=== PATIENT | male | born 1945 | race Caucasian/White ===

== ENCOUNTER 2020-05-14 06:58 | Outpatient (CLI) | payer MEDICARE, SELFPAY ==
[2020-05-14 07:16] LABS: Basophils Absolute Auto 0.05 K/mm3 (0.00-0.10); Basophils Percent Auto 0.8 % (0.0-1.0); Eosinophils Absolute Auto 0.18 K/mm3 (0.02-0.50); Eosinophils Percent Auto 2.7 % (1.0-6.0); Hematocrit 49.1 % (37.0-46.0); Hemoglobin 16.5 g/dL (12.4-15.3); Immature Granulocyte Absolute 0.04 K/mm3 (0.00-0.00); Immature Granulocyte Percent A 0.6 % (0.0-0.0); Lymphocytes Absolute Auto 1.61 K/mm3 (1.10-4.50); Lymphocytes Percent Auto 24.3 % (18.0-42.0); Mean Corpuscular HGB Conc 33.6 g/dL (32.0-36.0); Mean Corpuscular Hemoglobin 30.7 pg (27.0-31.0); Mean Corpuscular Volume 91.4 fL (78.0-102.0); Monocytes Absolute Auto 0.76 K/mm3 (0.10-0.90); Monocytes Percent Auto 11.5 % (2.0-11.0); Neutrophils Percent Auto 60.1 % (50.0-70.0); Platelet Count Result 164 K/mm3 (150-420); Red Blood Count 5.37 M/mm3 (4.70-6.10); Red Cell Distribution Width 12.9 % (11.6-14.4); White Blood Count 6.6 K/mm3 (4.8-10.8)
[2020-05-14 07:42] LABS: Alanine Aminotransferase 36 U/L (16-63); Albumin Level 4.2 g/dL (3.4-5.0); Alkaline Phosphatase 93 U/L (46-116); Anion Gap 4 mmol/L (8-16); Aspartate Amino Transferase 20 U/L (15-37); Bilirubin,Total 1.5 mg/dL (0.00-1.00); Blood Urea Nitrogen 19 mg/dL (7-18); Calcium 9.1 mg/dL (8.5-10.1); Carbon Dioxide 31 mmol/L (21-32); Chloride 104 mmol/L (98-108); Cholesterol 171 mg/dL (0-200); Estimated Glomerular Filt Rate > 60; Glucose 123 mg/dL (70-99); HDL Direct 63 mg/dL (40-60); LDL Cholesterol Calculated 83 mg/dL (<130); Osmolality Calculated 291 mOsm/kg (285-295); Potassium 4.5 mmol/L (3.5-5.1); Sodium 139 mmol/L (136-145); Total Protein 7.3 g/dL (6.4-8.2); Triglycerides 124 mg/dL (0-150)
[2020-05-14 09:53] LABS: Hemoglobin A1C 5.5 % (<5.7)
== END 2020-05-14 06:59 | disposition home or self-care (01) ==
LOC: CHSLAB 07:01
PROVIDERS: PCP Nurse Practitioner Family; Visit Provider Nurse Practitioner Family
DX: E78.5 Hyperlipidemia, unspecified (principal); I10 Essential (primary) hypertension; I25.10 Atherosclerotic heart disease of native coronary artery without angina pectoris; E11.9 Type 2 diabetes mellitus without complications
CPT/HCPCS: 36415; 80053; 80061; 83036; 85025

== ENCOUNTER 2020-07-09 15:13 | Outpatient (CLI) | payer MEDICARE, SELFPAY ==
--- NOTE | 2020-07-09 15:30 | ECG_ITS ---
Measurements Intervals [place] Rate: 63 P: 51 GA: 186 QRS: -7 QRSD: 102 T: 30 QT: 399 QTc: 409 Interpretive Statements SINUS RHYTHM BASELINE ARTIFACT- I, III, AVR, AVL, AVF NORMAL ECG Electronically Signed On 07-09-2020 15:29:34 [employer] SPECIALIST by Saulo Bran D.O.
== END 2020-07-09 15:14 | disposition home or self-care (01) ==
LOC: ANHSURGERY 15:18
PROVIDERS: PCP Nurse Practitioner Family; Visit Provider Urology
DX: C67.9 Malignant neoplasm of bladder, unspecified (principal); I10 Essential (primary) hypertension; Z01.818 Encounter for other preprocedural examination
CPT/HCPCS: 87086; 93005

== ENCOUNTER → 2020-07-13 01:30 | Outpatient (CLI) | payer MEDICARE, SELFPAY ==
[2020-07-13 19:42] LABS: SARS-CoV-2 RNA PCR Negative
== END ==
PROVIDERS: PCP Nurse Practitioner Family; Visit Provider Urology
DX: Z01.812 Encounter for preprocedural laboratory examination (principal); Z20.822 Contact with and (suspected) exposure to COVID-19
CPT/HCPCS: C9803; U0003; U0005

== ENCOUNTER 2020-07-16 01:56 | Day surgery (SDC) | payer MEDICARE, SELFPAY ==
[2020-07-08 10:45] VITALS: BMI 27.0
[2020-07-16 06:11] VITALS: BP 181/82; PULSE 62; RESP 20; TEMP 36.5; O2SAT 100
--- NOTE | 2020-07-16 06:43 | WPDANESEPPF ---
Anes - Initial Pre Proc Eval Procedure: Operation Date: 07/16/20 07:30 Proposed Procedures p Cystoscopy Bladder Biopsy With Fulguration - Chava Thornton MD Date/Time: 07/16/20 06:43 Surgeon: Chava Thornton MD Pre Op Diagnosis: Bladder Lesion Patient Data Age: 74 Gender: M Height: 1.8 m Weight: 88 kg Allergies Allergy/AdvReac Type Severity Reaction Status Date / Time No Known Allergies Allergy Unverified 07/08/20 10:36 Home Medications Medication Instructions Recorded Confirmed Type aspirin [Adult Low Dose Aspirin] 81 mg PO HS 05/01/19 07/08/20 History atorvastatin 40 mg PO HS 05/01/19 07/08/20 History carvedilol 3.125 mg PO BID 05/01/19 07/08/20 History coQ10 (ubiquinol) 100 mg PO DAILY 05/01/19 07/08/20 History cinnamon bark [Cinnamon] 1,200 mg PO DAILY 07/08/20 07/08/20 History lisinopril 10 mg PO QAM 07/08/20 07/08/20 History omega 9-[id number]-[id number]-fish oil [Fish Oil] 1 cap PO DAILY 07/08/20 07/08/20 History Patient hx anesthesia problems: none Family hx anesthesia problems: none PMFSH Past Medical History Medical History (Updated 07/16/20 @ 06:47 by Lamonte Nazario MD) Aortic stenosis 1.3 cm2 Bladder cancer In Remission - Under Surveilane by Dr Thornton CAD (coronary artery disease) Hyperlipidemia Hypertension Pancreatitis Venous insufficiency Surgical History Surgical History 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 Transurethral Resection of Bladder Mass H/O cystoscopy Family History Family History Mother Patient's mother is Acute myocardial infarction Father Patient's father is Family history of cardiovascular disease Social History Social History Smoking status: Never smoker Alcohol intake: current Drinks per week: 8 Alcohol use details: WINE Substance use: never Living arrangements: with family Additional living arrangements comments: SIGNIFANT OTHER Gender identity (if verbalized by the patient): Male Spiritual care concerns: No Anes - Eval Final PreProcedure Day of Procedure 07/16/20 06:43 Patient weight: overweight Heart: regular rate and rhythm Lungs: clear to auscultation and normal air movement Airway: Mallampati scale class II Neurological: alert and oriented Last oral intake: >/= 8 hours ASA classification: IV Emergent: no Anesthetic plan: proceed Anesthesia type and monitoring: general LMA Informed Consent: The patient's anesthetic plan and its attendant risks and benefits were discussed with the patient/family/POA. Questions were solicited and answers provided to the satisfaction of the patient/family/POA.
[2020-07-16] MEDS: LACTATED RINGERS 1,000 ML 30 ML IV CONT (06:47)
--- NOTE | 2020-07-16 07:32 | WPDHPUPDATE1 ---
History and Physical Update Update Date/Time: 07/16/20 07:32 History and Physical has been reviewed, including an updated exam of the patient. There are NO changes in the patient's condition. Risks, benefits, and alternatives have been discussed and questions answered. Patient agrees to proceed with procedure. Proceed with cysto with bladder biopsy and fulguration
[2020-07-16] MEDS: ceFAZolin 2 GM/D5W 50 ML 2 GM/50 ML BAG IVPB (07:38)
[2020-07-16] MEDS: LIDOCAINE HCL 2% GEL UROJET 10 ML PKG MUCOUS MEM (07:53)
--- NOTE | 2020-07-16 08:04 | PM.PROC ---
Procedure Note - Detailed Date of procedure: 07/16/20 Pre-op diagnosis: Bladder Lesion Post-op diagnosis: same Procedure performed: Cystoscopy, bladder biopsy, fulguration Description of procedure: Patient is taken the operative suite and correctly identified. Once anesthesia was obtained was placed in dorsal lithotomy position and prepped and draped in usual sterile fashion. Twenty-two Vincentian scope was inserted in the bladder. There is some mild erythema along the posterior wall prior resection site. Using a cold cup biopsy we biopsied this area. We fulgurated the base and the surrounding tissue. There was good hemostasis. 2% viscous lidocaine was inserted into the urethra and patient is taken recovery room stable condition. Will call for path results in 1 week's time. Anesthesia: GLMA Surgeon: Chava Thornton MD Drains: No Packing: No Pathology: yes Complications: No immediate complications Condition: stable Disposition: PACU
[2020-07-16 08:07] VITALS: BP 126/75; PULSE 61; RESP 18; TEMP 36.1; O2SAT 100
[2020-07-16 08:20] VITALS: BP 135/75; PULSE 55; RESP 18; O2SAT 100
[2020-07-16 08:35] VITALS: BP 148/79; PULSE 55; RESP 18; O2SAT 100
[2020-07-16 08:40] VITALS: BP 156/83; PULSE 58; RESP 16
== END 2020-07-16 09:15 | disposition home or self-care (01) ==
PROVIDERS: PCP Nurse Practitioner Family; Visit Provider Urology
PROC: 0TBB8ZX Excision of Bladder, Via Natural or Artificial Opening Endoscopic, Diagnostic (ICD-10-PCS; CPT 52204; principal; 2020-07-16 07:30)
DX: N30.20 Other chronic cystitis without hematuria (principal); I10 Essential (primary) hypertension; I25.10 Atherosclerotic heart disease of native coronary artery without angina pectoris; E78.5 Hyperlipidemia, unspecified; I35.0 Nonrheumatic aortic (valve) stenosis; I87.2 Venous insufficiency (chronic) (peripheral); Z79.82 Long term (current) use of aspirin; Z85.51 Personal history of malignant neoplasm of bladder
CPT/HCPCS: 52204; 88305; A9270; J0690; J1100; J2370; J2405; J2704; J3010; J7120

== ENCOUNTER 2021-06-02 07:03 | Outpatient (CLI) | payer MEDICARE, SELFPAY ==
[2021-06-02 07:56] LABS: Anion Gap 8 mmol/L (8-16); Blood Urea Nitrogen 16 mg/dL (7-18); Calcium 9.1 mg/dL (8.5-10.1); Carbon Dioxide 31 mmol/L (21-32); Chloride 103 mmol/L (98-108); Estimated Glomerular Filt Rate > 60; Glucose 121 mg/dL (70-99); Osmolality Calculated 296 mOsm/kg (285-295); Potassium 4.5 mmol/L (3.5-5.1); Sodium 142 mmol/L (136-145)
== END 2021-06-02 07:04 | disposition home or self-care (01) ==
LOC: CHSLAB 07:09
PROVIDERS: PCP Nurse Practitioner Family
DX: I10 Essential (primary) hypertension (principal)
CPT/HCPCS: 36415; 80048

== ENCOUNTER 2021-06-21 21:02 | Emergency (ER) | payer MEDICARE, SELFPAY ==
[2021-06-21 21:25] VITALS: BP 197/95; PULSE 76; RESP 17; TEMP 36.8; O2SAT 98
--- NOTE | 2021-06-21 21:53 | ECG_ITS ---
Measurements Intervals [place] Rate: 70 P: 40 ME: 191 QRS: -12 QRSD: 104 T: 28 QT: 385 QTc: 415 Interpretive Statements SINUS RHYTHM BASELINE ARTIFACT- II, III, AVL, AVF, V3 NORMAL ECG Electronically Signed On 06-22-2021 7:40:18 GLYCERIN OPERATOR by Saulo Bran D.O.
--- NOTE | 2021-06-21 21:53 | ED.GENADULT ---
HPI - General Adult General Chief complaint: Unspecified Stated complaint: high blood pressure Time Seen by Provider: 06/21/21 21:53 Source: patient Mode of arrival: ambulatory Limitations: no limitations History of Present Illness HPI narrative: patient presents with elevated blood pressure initially systolic 190s currently his systolic blood pressure is 187 patient has a history of hypertension hyperlipidemia and aortic stenosis, otherwise the patient denies any chest pain no shortness of breath no abdominal pain no fever chills no headaches no nausea vomiting. The patient is comfortable but is concerned about his blood pressure. Patient is being seen by Cardiology and had recently had his lisinopril increased, patient did not take his Coreg prior to arrival, he says that he usually takes it prior to bed. Onset (ago): hour(s) Severity: mild Related Data Home Medications Medication Instructions Recorded Confirmed aspirin [Adult Low Dose Aspirin] 81 mg PO HS 05/01/19 06/21/21 atorvastatin 40 mg PO HS 05/01/19 06/21/21 carvedilol 3.125 mg PO BID 05/01/19 06/21/21 coQ10 (ubiquinol) 100 mg PO DAILY 05/01/19 06/21/21 cinnamon bark [Cinnamon] 1,200 mg PO DAILY 07/08/20 06/21/21 omega 7-[id number]-[id number]-fish oil [Fish Oil] 1 cap PO DAILY 07/08/20 06/21/21 lisinopril 40 mg PO DAILY 06/21/21 06/21/21 Allergies Allergy/AdvReac Type Severity Reaction Status Date / Time No Known Allergies Allergy Verified 06/21/21 21:51 Review of Systems Review of Systems: All systems reviewed & are unremarkable except as noted in HPI and below PMFSH Past Medical History Medical History Aortic stenosis 1.3 cm2 Bladder cancer In Remission - Under Surveilane by Dr Norberto LOBATO (coronary artery disease) Hyperlipidemia Hypertension Pancreatitis Venous insufficiency Surgical History Surgical History 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 Transurethral Resection of Bladder Mass H/O cystoscopy Family History Family History Mother Patient's mother is Acute myocardial infarction Father Patient's father is Family history of cardiovascular disease Social History Social History Smoking status: Never smoker Alcohol intake: current Drinks per week: 8 Alcohol use details: WINE Substance use: never Additional living arrangements comments: SIGNIFANT OTHER Gender identity (if verbalized by the patient): Male Spiritual care concerns: No Exam Const: General: cooperative, healthy appearing, comfortable, no acute distress and well developed HENMT: Head: normal to inspection Ears: hearing grossly normal bilaterally General nose exam: Normal external nose present Face and sinus: normal facial exam Mouth: Yes Normal oral and palatal mucosa present Eyes: General: appearance normal, both eyes and all related structures Neck: Neck: normal visual inspection, full ROM, no lymphadenopathy and no meningeal signs Chest: Chest palpation & inspection: normal inspection of the chest and normal palpation of entire chest wall Resp: Effort & Inspection: normal respiratory effort and able to speak in complete sentences Auscultation: clear to auscultation bilaterally Cardio: Palpation: normal PMI Rate: regular rate Heart sounds: Murmur heart sound present GI: Inspection: normal to inspection Back/Spine/Pelvis: Back: no CVA tenderness Skin: General skin exam: normal color and no rashes or lesions noted Neuro: General: oriented to person, oriented to place, oriented to time, patient oriented x3 and gait normal Extrem: General: normal to inspection, full ROM, capillary refill normal and normal exam except as noted Psych: Appearance: grossly normal and well kempt Course Course Em
[2021-06-21 22:19] VITALS: PULSE 74
[2021-06-21] MEDS: METOPROLOL TARTRATE INJ 5 MG/5 ML VIAL 2.5 MG IV PUSH (22:19)
[2021-06-21 22:55] VITALS: BP 166/77; PULSE 66
[2021-06-21 23:29] VITALS: BP 183/88; PULSE 66; RESP 16; TEMP 37.1; O2SAT 98
== END 2021-06-21 23:31 | disposition home or self-care (01) ==
PROVIDERS: Emergency Provider Emergency Medicine; PCP Nurse Practitioner Family
DX: I10 Essential (primary) hypertension (principal); I25.10 Atherosclerotic heart disease of native coronary artery without angina pectoris; E78.5 Hyperlipidemia, unspecified
CPT/HCPCS: 93005; 96374; 99284

== ENCOUNTER 2023-01-07 08:34 | Outpatient (CLI) | payer MEDICARE, OTHER, SELFPAY ==
[2023-01-07 09:38] LABS: Influenza A QL RT-PCR Negative (Negative); Influenza B QL RT-PCR Negative (Negative); SARS-CoV-2 RNA PCR Positive (Negative)
[2023-01-07 09:39] LABS: RSV RNA, RT-PCR Negative (Negative)
== END 2023-01-07 08:35 | disposition home or self-care (01) ==
PROVIDERS: PCP Family Medicine; Visit Provider Family Medicine
DX: U07.1 COVID-19 (principal); J06.9 Acute upper respiratory infection, unspecified
CPT/HCPCS: 87637

== ENCOUNTER 2023-01-21 06:58 | Outpatient (CLI) | payer MEDICARE, SELFPAY ==
[2023-01-21 07:08] LABS: Basophils Absolute Auto 0.04 K/mm3 (0.00-0.10); Basophils Percent Auto 0.6 % (0.0-1.0); Eosinophils Absolute Auto 0.18 K/mm3 (0.02-0.50); Eosinophils Percent Auto 2.7 % (1.0-6.0); Hemoglobin 14.9 g/dL (12.4-15.3); Immature Granulocyte Absolute 0.03 K/mm3 (0.00-0.00); Immature Granulocyte Percent A 0.4 % (0.0-0.0); Lymphocytes Absolute Auto 1.34 K/mm3 (1.10-4.50); Lymphocytes Percent Auto 19.8 % (18.0-42.0); Mean Corpuscular HGB Conc 35.5 g/dL (32.0-36.0); Mean Corpuscular Hemoglobin 32.9 pg (27.0-31.0); Mean Corpuscular Volume 92.7 fL (78.0-102.0); Mean Platelet Volume 8.6 fl (8.7-11.0); Monocytes Absolute Auto 0.71 K/mm3 (0.10-0.90); Monocytes Percent Auto 10.5 % (2.0-11.0); Neutrophils Absolute Auto 4.5 K/mm3 (1.7-7.2); Platelet Count Result 165 K/mm3 (150-420); Red Blood Count 4.53 M/mm3 (4.70-6.10); Red Cell Distribution Width 12.5 % (11.6-14.4); White Blood Count 6.8 K/mm3 (4.8-10.8)
[2023-01-21 08:05] LABS: Alanine Aminotransferase 94 U/L (16-63); Albumin Level 3.7 g/dL (3.4-5.0); Alkaline Phosphatase 106 U/L (46-116); Anion Gap 7 mmol/L (8-16); Aspartate Amino Transferase 62 U/L (15-37); Bilirubin,Total 1.4 mg/dL (0.00-1.00); Blood Urea Nitrogen 22 mg/dL (7-18); Carbon Dioxide 32 mmol/L (21-32); Chloride 101 mmol/L (98-108); Cholesterol 156 mg/dL (0-200); Estimated Glomerular Filt Rate > 60; Glucose 130 mg/dL (70-99); HDL Direct 50 mg/dL (40-60); LDL Cholesterol Calculated 72 mg/dL (<130); Osmolality Calculated 295 mOsm/kg (285-295); Potassium 4.2 mmol/L (3.5-5.1); Sodium 140 mmol/L (136-145); Total Protein 6.6 g/dL (6.4-8.2); Triglycerides 172 mg/dL (0-150)
[2023-01-21 08:07] LABS: Thyroid Stimulating Hormone Reflex 2.47 u/IU/mL (0.36-3.74)
[2023-01-25 18:53] LABS: Hepatitis A Antibody IgM Nonreactive; Hepatitis B Core Antibody Nonreactive (Nonreactive); Hepatitis B Surface Antigen Nonreactive (Nonreactive); Hepatitis C Virus Antibody Nonreactive
== END 2023-01-21 06:59 | disposition home or self-care (01) ==
LOC: CHSLAB 07:00
PROVIDERS: PCP Family Medicine; Visit Provider Family Medicine
DX: R74.01 Elevation of levels of liver transaminase levels (principal); I10 Essential (primary) hypertension; E11.9 Type 2 diabetes mellitus without complications
CPT/HCPCS: 36415; 80053; 80061; 80074; 84443; 85025

== ENCOUNTER 2023-01-28 07:37 | Outpatient (CLI) | payer MEDICARE, OTHER, SELFPAY ==
--- NOTE | ~2023-01-28 | XR_ITS ---
XR shoulder RT min 2V 01/28/2023 08:12 Indication: Right shoulder pain Procedure: 3 views right shoulder Comparison: No prior studies for comparison. Findings: There is moderate polyarticular osteoarthritis of the right acromioclavicular and glenohume ral joints. There is anatomic alignment. No fracture or traumatic malalignment. Surrounding osseous s tructures are unremarkable. No focal soft tissue abnormality. No foreign bodies. Impression: 1: Moderate polyarticular osteoarthritis. Reviewed, dictated and finalized at location L. Impression: 1: Moderate polyarticular osteoarthritis.
--- NOTE | ~2023-01-28 | US_ITS ---
US abdomen limited INDICATION: Elevated liver enzymes PROCEDURE: Realtime right upper abdominal ultrasound. COMPARISON: No prior studies for comparison. FINDINGS: The pancreas is normal without focal mass or pancreatic ductal dilation. Liver echotexture is normal without focal mass or intrahepatic biliary dilatation. There is normal directional flow i n the portal vein. The gallbladder is normal without stones, gallbladder wall thickening or pericholecystic fluid. Comm on bile duct measures 4 mm. No sonographic Colindres's sign. IMPRESSION: 1: Normal limited abdominal ultrasound. Reviewed, dictated and finalized at location L.
--- NOTE | ~2023-01-28 | XR_ITS ---
XR shoulder LT min 2V 01/28/2023 08:12 Indication: Left shoulder pain for 2 months Procedure: 3 views left shoulder Comparison: No prior studies for comparison. Findings: There is moderate polyarticular osteoarthritis of the left acromioclavicular and glenohumer al joints. There is chondrocalcinosis. There is anatomic alignment. No fracture or traumatic malalign ment. Surrounding osseous structures are unremarkable. No focal soft tissue abnormality. No foreign b odies. Impression: 1: Moderate polyarticular osteoarthritis. Reviewed, dictated and finalized at location L. Impression: 1: Moderate polyarticular osteoarthritis.
== END 2023-01-28 07:38 | disposition home or self-care (01) ==
PROVIDERS: PCP Family Medicine; Visit Provider Family Medicine
DX: M19.012 Primary osteoarthritis, left shoulder (principal); M19.011 Primary osteoarthritis, right shoulder; M25.511 Pain in right shoulder; M25.512 Pain in left shoulder; R74.01 Elevation of levels of liver transaminase levels
CPT/HCPCS: 73030; 76705

== ENCOUNTER 2023-03-29 07:41 | Outpatient (RCR) | payer MEDICARE, OTHER, SELFPAY ==
--- NOTE | 2023-03-29 08:29 | PTOPEVAL1 ---
Assessment and note entered by Darrell Benito Evaluation Information Assessment Status Evaluation Diagnosis bilateral shoulder pain Onset 09/26/22 Subjective Information Pt. reports that he developed bilateral shoulder pain about 6 months ago. He reports no incident just gradual onset of pain. He reports that pain is worst before bed and very sore when first moving in the morning. He describes pain in the lateral brachial region of the right and left shoulder. He reports that the right shoulder is much worse than the left. He reports that he is right hand dominant. He reports that sleep is difficult due to pain. He describes pain being most intense with reaching overhead or away from his body. He reports that he has learned to adapt and complete most of his regular home activities despite pain. He reports that his goal is to be able to decrease his pain with reaching activities and improve sleeping. Reported Pain Level Pain Score 2,1: Self Report Assessment PT Clinical Summary Pt. is a 77 year old male who presents to the clinic with bilateral shoulder pain. He presents with impaired ROM, impaired strength and pain on this date. Continued skilled PT is inicated in order to improve these areas to allow for improved comfort with u.e. movement and sleep. Plan of Care Interventions Electrical Stimulation,Hot Pack/Cold Pack,Manual Therapy,Neuro Re-education,Patient/Caregiver Educati,Therapeutic Activities,Therapeutic Exercise PT Services Indicated Yes Treatment Frequency and 2x/week x 10 visits Duration These treatments will address the objective and functional deficits as defined above. The patient will be advanced safely and appropriately in order for the patient to progress towards his/her prior level of function. Additional exercises will be introduced and as well as a comprehensive home exercise program upon discharge, if needed, ?to ensure carryover of functional gains achieved in the clinic. This treatment plan has been reviewed and agreement upon by the patient.
--- NOTE | 2023-04-28 08:40 | PTOPPROG ---
Assessment and note entered by Amanda Byrnes, PT Evaluation Information Assessment Status Evaluation Diagnosis B shoulder pain Onset 09/26/22 Subjective Information Alfred Schrader reports both of his shoulders are feeling much better. He notes he can now sleep without pain and can reach into overhead cabinets. He does still have pain occasionally that is more noticable on the right shoulder when he reaches across his chest. Assessment PT Clinical Summary Alfred Schrader has completed 10 skilled PT visits for bilateral shoulder pain. He is reporting less pain with an ability to sleep through the night and less pain with overhead lifting. He does still have pain in the right > left shoulder when reaching behind the back and across the chest. He demonstrates improved bilateral shoulder AROM and strength overall. He continues to demonstrate positive special tests for bicep and rotator cuff tendinitis/tendonosis as well decreased and painful right shoulder ER and functional IR AROM in addition to decreased right shoulder ER strength. He will continue to benefit from skilled PT to further address these physical and functional limitations. Plan of Care Interventions Electrical Stimulation,Hot Pack/Cold Pack,Manual Therapy,Patient/Caregiver Educati,Therapeutic Activities,Therapeutic Exercise PT Services Indicated Yes Treatment Frequency and 2 times a week for 4 visits Duration These treatments will address the objective and functional deficits as defined above. The patient will be advanced safely and appropriately in order for the patient to progress towards his/her prior level of function. Additional exercises will be introduced and as well as a comprehensive home exercise program upon discharge, if needed, ?to ensure carryover of functional gains achieved in the clinic. This treatment plan has been reviewed and agreement upon by the patient.
--- NOTE | 2023-05-14 07:45 | OPREHPOC ---
Outpatient Therapy Plan of Care This is a Multidisciplinary Plan of Care that may contain components documented by all disciplines (PT, OT, and ST.) PT Problem 1 PT Problem #1 Knowledge Deficit PT Goal 1 Goal Independent with a HEP addressing shoulder strength and ROM. Target Visit 2 Progress Met PT Problem 2 PT Problem #2 Impaired Range of Motion PT Goal 1 Goal -Pt. will demonstrate 170 degrees bilateral active shoulder flexion in order to improve overhead function. Target Visit 10 Progress Met PT Problem 3 PT Problem #3 Impaired Strength PT Goal 1 Goal Pt. will present with bilateral shoulder ER and flexion strength at 4+/5 or greater. Target Visit 10 Progress Partially Met PT Goal 2 Goal Patient will demonstrate right shoulder ER AROM of at least 70 degrees to improve ability to don a seatbelt. Patient will demonstrate right shoulder IR functional AROM to L1 to improve ability to reach behind the back for bathing and dressing. Progress Met PT Problem 4 PT Problem #4 Impaired Functional Mobil PT Goal 1 Goal Pt. will be able to sleep through the night without pain disturbance. Target Visit 10 Progress Met PT Goal 2 Goal Pt. will present with less than 10% limitation on the Quick DASH. Progress Partially Met Comment continue
--- NOTE | 2023-05-14 07:46 | PTOPDC ---
Assessment and note entered by JT File, PT Evaluation Information Assessment Status Evaluation Diagnosis B shoulder pain Onset 09/26/22 Subjective Information patient reports he feels pretty good this morning. he reports maybe a 1/10 pain in the shoulders today. he reports hte pain he initially had is gone. he reports he is still working to improve his strength at home. Reported Pain Level Pain Score 0,1: Self Report Assessment PT Clinical Summary mr. harris presents to skilled PT today for his 14th skilled therapy visit for bilateral shoulder pain. again today, he reports lower pain in the bilateral shoulders and subjective improvement on the quick dash self assessment. he displays greater bilateral ER strength, but still weakened flexion strength of the R shoulder. he has no functional ROM limitations of either shoulder. he hast met all goals for skilled PT, except for flexion strength and quick dash score. at this time, patient is appropriate to DC skilled PT and continue with HEP independent at home. he was given and extensive HEP to complete 3x weekly focusing on shoulder rom and strength of the bilateral LE's.he was given instructions to call for questions or if there is a return to symptoms. Plan of Care PT Services Indicated Yes
== END 2023-05-14 14:42 | disposition home or self-care (01) ==
LOC: CHSPT 07:41
PROVIDERS: PCP Family Medicine; Visit Provider Family Medicine
DX: M25.511 Pain in right shoulder (principal); M25.512 Pain in left shoulder; R74.01 Elevation of levels of liver transaminase levels
CPT/HCPCS: 97014; 97110; 97140; 97161; 97530; G0283

== ENCOUNTER 2024-04-05 15:47 | Outpatient (RCR) | payer MEDICARE, SELFPAY ==
--- NOTE | 2024-04-05 17:12 | OPREHPOC ---
Outpatient Therapy Plan of Care This is a Multidisciplinary Plan of Care that may contain components documented by all disciplines (PT, OT, and ST.) PT Problem 1 PT Problem #1 Knowledge Deficit PT Goal 1 Goal / Goal Update The patient will be independent in a home exercise program. Target Visit 4 PT Problem 2 PT Problem #2 Pain PT Goal 1 Goal / Goal Update The patient will report no greater than 2/10 low back pain with axle and frame mechanic and sleeping without use of pain medication. Target Visit 10 PT Problem 3 PT Problem #3 Impaired Functional Mobil PT Goal 1 Goal / Goal Update 1. The patient will demonstrate 5% or less self perceived disability per the Back Index questionnaire. 2. The patient will demonstrate the ability to lift 10# from floor to waist with proper body mechanics for 5 repetitions. Target Visit 10 PT Problem 4 PT Problem #4 Impaired Flexibility PT Goal 1 Goal / Goal Update The patient will improve bilateral hamstring flexibility to -10 degrees or less tightness in the 90/90 position to decrease stress on the lumbar spine. Target Visit 10
--- NOTE | 2024-04-05 17:12 | PTOPEVAL1 ---
Assessment and note entered by Amanda Byrnes, PT Evaluation Information Assessment Status Evaluation ICD-10 Condition Codes (PT) Pain in low back M54.50 Onset 03/30/24 Subjective Information Alfred Schrader reports he started having lower back pain about 3 weeks ago after he was loading some wood into the back of his truck. It started as a sharp pain on the left side and he was having trouble sleeping. He went to the chiropractor and pain got worse. He stopped going to the chiropractor and used heat, ice, and a self massager to help decrease pain. He then went to his doctor and was prescribed Flexeril and oxycodone for the pain. He notes the pain has decreased quite a bit since he started the medication a few days ago. He still has pain on the right lower back more than the left. The pain is constant and he is cautious with what he does. He is typically very active with house and yard work. Reported Pain Level Pain Score 3: Self Report Assessment PT Clinical Summary Alfred Schrader presents with acute low back pain after loading his truck with firewood. He was having difficulty with sleeping and performing heavy house and yard work until he was started on a muscle relaxer and pain medication. He continues to have mild pain that is worse on the right than the left today but does affect both sides. He objectively demonstrates decreased lumbar AROM; decreased bilateral hamstring, quadriceps, and piriformis flexibility; decreased core strength; and decreased functional abilties. He will benefit from skilled PT to address these limitations. Plan of Care Interventions Electrical Stimulation,Hot Pack/Cold Pack,Manual Therapy,Neuro Re-education,Patient/Caregiver Educati,Therapeutic Activities,Therapeutic Exercise PT Services Indicated Yes Treatment Frequency and 2 times a week for 10 visits Duration These treatments will address the objective and functional deficits as defined above. The patient will be advanced safely and appropriately in order for the patient to progress towards his/her prior level of function. Additional exercises will be introduced and as well as a comprehensive home exercise program upon discharge, if needed, ?to ensure carryover of functional gains achieved in the clinic. This treatment plan has been reviewed and agreement upon by the patient.
--- NOTE | 2024-06-29 10:20 | PTOPDC ---
Assessment and note entered by Amanda Byrnes, PT Evaluation Information Assessment Status Discharge - Pt Not Present ICD-10 Condition Codes (PT) Pain in low back M54.50 Onset 03/30/24 Subjective Information Alfred Schrader is not present for discharge. Assessment PT Clinical Summary Alfred Schrader completed 5 skilled PT visits for low back pain. He was last treated on 04/19/24 and was reporting minimal back pain. He was ready to be discharged and took 2 weeks off PT. He did not call to schedule more. He is discharged. Plan of Care PT Services Indicated Yes
== END 2024-04-19 17:00 | disposition home or self-care (01) ==
LOC: CHSPT 15:47
PROVIDERS: Visit Provider Family Medicine
DX: M54.50 Low back pain, unspecified (principal)
CPT/HCPCS: 36415; 85610; 97014; 97110; 97140; 97161; G0283

== ENCOUNTER 2025-01-22 08:00 | Outpatient (RCR) | payer MEDICARE, SELFPAY | END 2025-01-22 13:50 | disposition home or self-care (01) | PROVIDERS: PCP Family Medicine | DX: Z95.1 Presence of aortocoronary bypass graft (principal) | CPT/HCPCS: 93798 ==